=== PATIENT | male | born 1965 | race Caucasian/White ===

== ENCOUNTER → 2021-03-08 10:33 | Outpatient (CLI) | payer BC, SELFPAY ==
--- NOTE | 2021-03-08 | DI.RAD.S_ITS ---
PROCEDURE: XR ABDOMEN 1V INDICATIONS: STENT SERIES TECHNIQUE: One view of the abdomen acquired. COMPARISON: None. FINDINGS: Surgical changes and devices: Shunt tubing is noted looping within the right abdomen. No evidence of fracture.. Bowel: Bowel gas pattern is normal. Soft tissues: No suspicious abdominal calcifications. Visualized solid organ contours appear normal in size. Bones: No suspicious bony lesions. IMPRESSION: Intra-abdominal shunt tubing appears intact. Dictated by: Prasad Silverman D.O. on 03/08/2021 at 10:17 Approved by: Prasad Silverman D.O. on 03/08/2021 at 10:18
--- NOTE | 2021-03-08 10:43 | DI.RAD.S_ITS ---
PROCEDURE: XR CHEST 1V INDICATIONS: SHUNT SERIES TECHNIQUE: One view of the chest was acquired. COMPARISON: [facility], [place], XR ABDOMEN 1V, 03/08/2021, 10:50. FINDINGS: Surgical changes and devices: Shunt tubing is noted overlying the right chest wall extending into the abdomen and looping along the right upper quadrant. The imaged portions appear intact. Lungs and pleura: Lungs are clear. No pleural effusions or pneumothorax. Mediastinum: Mediastinal contours appear normal. Heart size is normal. Bones and chest wall: No suspicious bony lesions. Overlying soft tissues appear unremarkable. IMPRESSION: Intrathoracic shunt tubing appears intact. Dictated by: Prasad Silverman D.O. on 03/08/2021 at 10:16 Approved by: Prasad Silverman D.O. on 03/08/2021 at 10:17
== END ==
PROVIDERS: Referring Provider Neurological Surgery; Visit Provider Neurological Surgery
DX: G91.9 Hydrocephalus, unspecified (principal); Z98.2 Presence of cerebrospinal fluid drainage device
CPT/HCPCS: 71045; 74018